=== PATIENT | female | born 1995 | race Caucasian/White ===

== ENCOUNTER 2022-07-21 20:04 | Emergency (ER) | payer OTHER, SELFPAY ==
[2022-07-21 20:05] VITALS: BP 112/75; PULSE 96; RESP 16; TEMP 36.7; O2SAT 100; BMI 18.0
[2022-07-21 20:16] VITALS: BP 112/75; PULSE 96; RESP 16; TEMP 36.7; O2SAT 100
--- NOTE | 2022-07-21 20:16 | [facility].EDMCLR ---
Discharge Plan Disposition Chief Complaint: Medical Clearance Referrals Follow up/Referrals: Provider,Referral, MD [Primary Care Provider] - See instructions Clinical Impressions Clinical Impression: Medical clearance for incarceration Discharge ED Provider: Terence Milton Medical Clearance HPI General Chief complaint: Medical Clearance Stated complaint: medical clearance Time Seen by Provider: 07/21/22 20:16 Mode of Arrival: Ambulatory Source of Information: Patient and Medical Record Limitations: No Limitations Description of Symptoms (Recalled from ER Triage Doc. by RN): Pt here with PD for medical clearance on . Pt has no complaints reported to staff and is in stable condition. History of Present Illness HPI Narrative: no c/o MD complaint: medical clearance requested Onset (ago): hour(s) Place: street Traumatic Symptoms: denies traumatic injury Associated Symptoms: denies other symptoms PFSH PFSH Social History Smoking Status: Current every day smoker alcohol intake: never current occupational status: unemployed Travel in the last 8 weeks: None ROS Obtained: Yes All systems reviewed & no additional complaints except as documented Physical Exam General General appearance: alert and in no apparent distress Head Head exam: normocephalic Eye Eye exam: Present PERRL and EOMI ENT ENT exam: Present mucous membranes moist Neck Neck exam: Present trachea midline Respiratory Respiratory exam: Present normal lung sounds bilaterally; Absent respiratory distress Cardiovascular Cardiovascular exam: Present regular rate Abdominal Exam Abdominal exam: Present soft Extremities Exam Extremities exam: Present full ROM Neurological Exam Neurological exam: Present alert, oriented X3 and CN II-XII intact Psychiatric Psychiatric exam: Present normal affect Skin Skin exam: Absent rash Medical Decision Making Medical Records Medical records reviewed: Yes I reviewed the patient's medical records. [facility] Inquiry Pt receiving controlled substance: No Vital Signs: 07/21/22 20:05 Temperature 98.1 F Temperature Source Oral Pulse Rate [Right Radial] 96 H Respiratory Rate 16 Blood Pressure [Right Arm] 112/75 Blood Pressure Mean [Right Arm] 87 Blood Pressure Source [Right Arm] Automatic Cuff Blood Pressure Position [Right Arm] Sitting 02 Sat by Pulse Oximetry 100 Oxygen Delivery Method Room Air Lab Data Lab results reviewed: Yes I reviewed the patient's lab results. Medical Decision Narrative: stable Critical Care Time Critical Care Time Critical Care Time: No Attestation: On 07/21/22, the high probability of a clinically significant, sudden or life threatening deterioration of the following system(s) required my full and direct attention, intervention and personal management. The time I documented below is in addition to time spent performing reported procedures but includes the following listed in this critical care notation.
== END 2022-07-21 20:16 | disposition home or self-care (01) ==
LOC: ER 20:09
PROVIDERS: Emergency Provider Emergency Medicine
DX: Z00.8 Encounter for other general examination (principal)
CPT/HCPCS: 99282